=== PATIENT | male | born 1970 | race Caucasian/White ===

== ENCOUNTER 2018-07-20 08:07 | Inpatient (IN) | payer OTHER ==
[~2018-07-20] VITALS: Ht 188 cm; Wt 90.7 kg
[2018-07-20 08:19] VITALS: Ht 188 cm; Wt 90.7 kg
[2018-07-20 08:55] LABS: CALCIUM 8.6 mg/dL (8.5-10.1); CARBON DIOXIDE 31.8 mmol/L (21-32); CHLORIDE SERUM 96 mmol/L (98-107); CREATININE SERUM 0.9 mg/dL (0.7-1.3); GFR1 > 60 mL/min; GLUCOSE SERUM 137 mg/dL (74-106); POTASSIUM SERUM 3.2 mmol/L (3.5-5.1); SODIUM SERUM 134 mmol/L (136-145)
[2018-07-20 08:59] LABS: ALKALINE PHOSPHATASE 31 U/L (46-116); ALT/SGPT 24 U/L (16-63); AST/SGOT 19 U/L (15-37); BILIRUBIN TOTAL 0.49 mg/dL (0.20-1.00); TOTAL PROTEIN, SERUM 7.1 g/dL (6.4-8.2)
[2018-07-20 09:38] LABS: BASOPHIL % 0.6 % (0-2); PLATELET COUNT 209 x10^3mcL (130-400); RED CELL DISTRIBUTION WIDTH 13.2 % (11.5-14.5)
[2018-07-20] MEDS ORDERED: BENAZEPRIL HYDR40 M1 PO (10:01)
[2018-07-20] MEDS ORDERED: HYDROCHLOROTHIA25 MG PO (10:02)
[2018-07-20] MEDS ORDERED: ATORVASTATIN CA40 M1 PO (10:02)
[2018-07-20 15:11] VITALS: BP 102/47
[2018-07-20 17:27] VITALS: BP 100/61
[2018-07-20 21:02] VITALS: BP 110/62
[2018-07-21 05:50] VITALS: BP 101/63
[2018-07-21 06:17] LABS: CALCIUM 7.8 mg/dL (8.5-10.1); CARBON DIOXIDE 31.4 mmol/L (21-32); CHLORIDE SERUM 103 mmol/L (98-107); CREATININE SERUM 0.9 mg/dL (0.7-1.3); GFR1 > 60 mL/min; GLUCOSE SERUM 95 mg/dL (74-106); SODIUM SERUM 136 mmol/L (136-145)
[2018-07-21 08:41] LABS: BASOPHIL % 0.7 % (0-2); PLATELET COUNT 151 x10^3mcL (130-400); RED CELL DISTRIBUTION WIDTH 13.7 % (11.5-14.5)
[2018-07-21 09:44] VITALS: BP 110/75
[2018-07-21] MEDS ORDERED: PROTONIX40 MG PO (11:04)
[2018-07-21 12:22] VITALS: BP 137/77
[2018-07-21 12:59] VITALS: BP 101/63
== END 2018-07-21 13:38 | disposition home or self-care (01) | DRG 379 ==
LOC: ED 08:07 → DU 12:07
PROVIDERS: Internal Medicine; Specialist; ADMIT Internal Medicine
PROC: 0W3P8ZZ Control Bleeding in Gastrointestinal Tract, Via Natural or Artificial Opening Endoscopic (ICD-10-PCS; principal; 2018-07-20 13:00)
PROC: 0DB68ZX Excision of Stomach, Via Natural or Artificial Opening Endoscopic, Diagnostic (ICD-10-PCS; 2018-07-20 13:00)
DX: K25.0 Acute gastric ulcer with hemorrhage (principal); D50.0 Iron deficiency anemia secondary to blood loss (chronic); K29.80 Duodenitis without bleeding; I10 Essential (primary) hypertension; E78.5 Hyperlipidemia, unspecified; G89.29 Other chronic pain; M54.5 Low back pain; M19.90 Unspecified osteoarthritis, unspecified site; E87.6 Hypokalemia; M54.2 Cervicalgia; Z87.891 Personal history of nicotine dependence; Z90.49 Acquired absence of other specified parts of digestive tract
CPT/HCPCS: 43239; C9113; J1200; J1610; J2250; J2310; J2405; J3010; J3490; J7030; J7042; Q0092